=== PATIENT | male | born 1985 | race Caucasian/White ===

== ENCOUNTER 2020-06-06 18:22 | Emergency (ER) | payer SELFPAY ==
[~2020-06-06] VITALS: Ht 182.9 cm; Wt 87.5 kg
[2020-06-06 18:22] VITALS: BP_SYST 140
--- NOTE | 2020-06-06 18:40 | NUR ---
Patient to ER bed 6 to gown for evaluation. Side rails up.
--- NOTE | 2020-06-06 18:55 | NUR ---
Patient BIB BLS C/O anxiety. Patient A&Ox4, afebrile skin pink & warm, pain3/10, denies N/V/D. Patient states he has palpatations x2 hours while at work today with chest pain.
--- NOTE | 2020-06-06 19:02 | NUR ---
ER Dr. Stuart at bedside examining patient.
--- NOTE | 2020-06-06 19:14 | NUR ---
received report from MICHELLE Huddleston for continuation of care.
--- NOTE | 2020-06-06 19:15 | NUR ---
REPORT TO ZEKE MARTINEZ
[2020-06-06 19:25] VITALS: BP_SYST 132
--- NOTE | 2020-06-06 19:25 | NUR ---
Patient given written and verbal discharge instructions and verbalizes understanding. ER MD discussed with patient the results and treatment provided. Patient in stable condition. ID arm band removed. Rx of hydroxyzine hydrochloried given. Patient educated on pain management and to follow up with PMD. Pain Scale 0/10. Opportunity for questions provided and answered. Medication side effect fact sheet provided.
== END 2020-06-06 19:25 | disposition home or self-care (01) ==
LOC: SED 18:22
DX: F41.9 Anxiety disorder, unspecified (principal); R00.2 Palpitations
CPT/HCPCS: 93005; 99283